=== PATIENT | female | born 2000 | race Caucasian/White ===

== ENCOUNTER 2022-03-16 00:06 | Emergency (ER) | payer BC ==
[~2022-03-16] VITALS: Ht 157.5 cm; Wt 73.0 kg
[2022-03-16 00:15] VITALS: BP 105/63
[2022-03-16 00:55] LABS: BASOPHILS % 0.2 % (0.0-2.0); EOSINOPHILS % 0.5 % (0.0-5.0); HEMATOCRIT. 33.5 % (36.0-48.0); HEMOGLOBIN. 11.7 g/dL (12.0-16.0); LYMPHOCYTES % 16.1 % (20.0-50.0); MEAN CORPUSCULAR HEMOGLOBIN 31.3 pg (28.0-32.0); MEAN CORPUSCULAR VOLUME 89.4 fL (81.0-99.0); MEAN PLATELET VOLUME 10.1 fl (7.4-10.4); MONOCYTES % 5.5 % (2.0-8.0); NEUTROPHILS % 77.7 % (40.0-76.0); PLATELET 261 x1000/uL (130-400); RED BLOOD CELL COUNT 3.74 mill/uL (4.2-5.4); RED CELL DISTRIBUTION WIDTH 13.1 % (11.6-14.6)
[2022-03-16] MEDS ORDERED: ACETAMINOPHEN 325MG TABLET PO ONE (01:00)
[2022-03-16 01:04] LABS: CHLORIDE 108 mEq/L (98-107)
[2022-03-16] MEDS ORDERED: ONDANSETRON 4MG ODT PO ONE (01:15)
[2022-03-16 01:31] LABS: B-HCG QUANTITATIVE 38061 mIU/mL (<3)
[2022-03-16 04:27] LABS: CLARITY URINE CLOUDY (CLEAR); COLOR URINE YELLOW (YELLOW); KETONES URINE 3+ (NEGATIVE); LEUKOCYTE ESTERASE URINE TRACE (NEGATIVE); NITRITE URINE NEGATIVE (NEGATIVE); OCCULT BLOOD URINE 2+ (NEGATIVE); PROTEIN URINE 2+ (NEGATIVE); SPECIFIC GRAVITY URINE 1.023 (1.005-1.030)
[2022-03-16] MEDS ORDERED: CEPH500T MT (05:00)
== END 2022-03-16 05:12 | disposition home or self-care (01) ==
LOC: ER 00:06
DX: O26.892 Other specified pregnancy related conditions, second trimester (principal); R10.9 Unspecified abdominal pain; Z3A.16 16 weeks gestation of pregnancy
CPT/HCPCS: 36415; 76805; 80053; 81003; 83690; 84702; 85025; 86850; 86900; 86901; 99284; Q0162